=== PATIENT | male | born 1975 | race Caucasian/White ===

== ENCOUNTER 2016-04-02 18:16 | Emergency (ER) | payer SELFPAY ==
[~2016-04-02] VITALS: Ht 182.9 cm; Wt 75.0 kg
[~2016-04-02 18:16] MED LIST: BACT800T5 PO; CEPH500C3 PO
[2016-04-02 18:19] VITALS: BP 134/91; PULSE 84; RESP 1; RESP 12; TEMP 98.4; O2SAT 94
[2016-04-02] MEDS ORDERED: CEPH-460 PO (18:39)
[2016-04-02] MEDS ORDERED: IBUP800T23 PO (18:39)
[2016-04-02] MEDS ORDERED: BACT800T5 PO (18:39)
--- NOTE | 2016-04-02 18:40 | PD ---
HPI Chief Complaint: Pain: Acute or Chronic Time Seen by Provider: 18:37 Travel History International Travel<30 days: No Contact w/Intl Traveler<30days: No Traveled to known affect area: No History of Present Illness HPI 40-year-old male presents to emergency department complaining of redness and swelling to the tip of his right index finger for approximately one week. He says he has recurrent infections to that finger about every 3-4 months. He denies fever, chills, vomiting. Denies paresthesias, sensation, decreased range of motion to the affected finger. Denies drainage. Has not taken any medications or drainage from his to alleviate symptoms. 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 No known allergies. Dr. Mae is primary care provider. Denies significant past medical history. No other modifying factors or associated signs and symptoms. PFSH Past Medical History Medical History: Denies Significant Hx Social History Tobacco Use: No Allergies-Medications (Allergen,Severity, Reaction): Coded Allergies: No Known Allergies (Unverified , 06/12/14) Reported Meds & Prescriptions Reported Meds & Active Scripts Active Ibuprofen 800 Mg Tab 800 Mg PO Q6HR PRN Bactrim DS (Sulfamethoxazole-Trimethoprim) 800-160 Mg Tab 1 Tab PO BID 10 Days Keflex (Cephalexin) 500 Mg Cap 500 Mg PO Q6H 10 Days Keflex (Cephalexin Monohydrate) 500 Mg Cap 500 Mg PO QID Bactrim DS (Sulfamethoxazole-Trimethoprim DS) 1 Tab Tab 1 Tab PO BID 7 Days Review of Systems Except as stated in HPI: all other systems reviewed are Neg Physical Exam Narrative GENERAL: Well-nourished, well-developed male patient, in no acute distress; afebrile, nontoxic-appearing SKIN: Paronychia noted to the distal aspect of right index finger; areas with erythema and mildly edematous; partial amputation noted. Sensory intact. Right upper extremity is supple and nontense with 2+ radial pulses and sensory intact. HEAD: Atraumatic. Normocephalic. EYES: Pupils equal and round. No scleral icterus. No injection or drainage. ENT: Mucosa pink and moist. Airway patent. NECK: Trachea midline. CARDIOVASCULAR: Regular rate. RESPIRATORY: No accessory muscle use. GASTROINTESTINAL: Flat. MUSCULOSKELETAL: No obvious deformities. No clubbing. No cyanosis. No edema. NEUROLOGICAL: Awake and alert. Oriented 3. No obvious cranial nerve deficits. Motor grossly within normal limits. Normal speech. PSYCHIATRIC: Appropriate mood and affect; insight and judgment normal. Data Data Last Documented VS Vital Signs Date Time Temp Pulse Resp B/P Pulse Ox O2 Delivery O2 Flow Rate FiO2 04/02/16 18:19 98.4 84 12 134/91 94 Room Air 2 MDM Medical Decision Making Medical Screen Exam Complete: Yes Emergency Medical Condition: Yes Medical Record Reviewed: Yes Differential Diagnosis eli Guerra, Narrative Course 40-year-old male with a paronychia to the right index finger. History of paronychia to the same finger. Patient afebrile. Denies fever, chills, nausea , vomiting. Patient is declining incision and drainage of the paronychia. He is requesting antibiotics only. Patient instructed to return upon worsening despite antibiotics and he verbalized understanding and agreement with treatment plan. Keflex, Bactrim, ibuprofen prescribed for home. Patient is medically cleared and stable for discharge. Discussed reasons to return to the emergency department. Instructed patient to follow up with primary care provider. Patient agrees with treatment plan. The patients vital signs are stable and the patient is stable for outpatient follow-up and treatment. Patient discharged home, stable and in no acute distress. Diagnosis Primary Impression: Paronychia of right index finger Referrals: Primary Care Physician Patient Instructions: General Instructions, Paronychia (ED) Departure Forms: Tests/Procedures, Work Release Enter return to work date: Apr 03, 2016 Additional Instructions: Complete full course of antibiotics Warm compresses to the affected area Keep area clean and dry Ibuprofen Or Tylenol instructed for pain and inflammation Follow-up with primary care provider Return to emergency department immediately with worsening of symptoms Med/Other Pt SpecificInfo: Prescription(s) given Scripts Ibuprofen 800 Mg [id number] Mg PO Q6HR PRN (PAIN) #30 TAB Ref 0 Prov:Jaky Diaz [employer] 04/02/16 Sulfamethoxazole-Trimethoprim (Bactrim DS)800-160 Mg Tab1 Tab PO BID 10 Days Ref 0 Prov:Jaky Diaz [employer] 04/02/16 Cephalexin (Keflex)500 Mg [id number] Mg PO Q6H 10 Days Ref 0 Prov:Jaky Diaz [employer] 2/15/17 Disposition: 01 DISCHARGE HOME Condition: Stable Rassi,Jaky K [employer] Apr 02, 2016 18:40
[2016-04-02] MEDS ORDERED: ASPI1TAB69 PO (18:48)
[2016-04-02] MEDS ORDERED: IBUPROFEN 800 MG TAB PO ONE (19:00)
== END 2016-04-02 19:04 | disposition home or self-care (01) ==
LOC: NEPB 18:16
DX: L03.011 Cellulitis of right finger (principal)
CPT/HCPCS: 99283